=== PATIENT | male | born 1950 | race Asian ===

== ENCOUNTER 2017-01-02 06:40 | Day surgery (SDC) | payer OTHER ==
[~2017-01-02] VITALS: Ht 167.6 cm; Wt 106.2 kg
[~2017-01-02 06:40] MED LIST: AMLO-147 PO; ATEN50TA PO; CHOL100062 PO; DOXA8TAB65 PO; FINA5TAB4 PO; FURO40TA4 PO; GABA-526 PO; LOSA50TA6 PO; PIOG30TA26 PO; POTA20TA96 PO; ZOC10 PO
[2017-01-02 08:10] VITALS: Ht 167.6 cm; Wt 106.2 kg
[2017-01-02 08:18] LABS: ADD SCAN DIFF NO
[2017-01-02 08:22] LABS: EOSINOPHILS # 0.2 10^3/ul (0.0-0.5); EOSINOPHILS % 4.4 % (0.0-7.0); HEMATOCRIT 38.5 % (42.0-52.0); HEMOGLOBIN 12.6 g/dl (14.0-18.0); LYMPHOCYTES # 0.8 10^3/ul (0.8-2.9); MEAN CORPUSCULAR HEMOGLOBIN 30.7 pg (29.0-33.0); MEAN CORPUSCULAR HGB CONC 32.7 g/dl (32.0-37.0); MEAN CORPUSCULAR VOLUME 93.9 fl (82.0-101.0); MEAN PLATELET VOLUME 10.3 fl (7.4-10.4); MONOCYTE # 0.4 10^3/ul (0.3-0.9); MONOCYTES % 9.2 % (0.0-11.0); NEUTROPHIL # 2.5 10^3/ul (1.6-7.5); NEUTROPHILS % 65.1 % (39.0-77.0); PLATELET COUNT 154 10^3/UL (140-415); RED CELL DISTRIBUTION WIDTH 13.8 % (11.5-14.5); WHITE BLOOD COUNT 3.9 10^3/ul (4.8-10.8)
[2017-01-02] MEDS ORDERED: PIOG45TA15 PO (08:22)
[2017-01-02] MEDS ORDERED: SIMV40TA7 PO (08:22)
[2017-01-02] MEDS ORDERED: LAS20 PO (08:22)
[2017-01-02] MEDS ORDERED: GLIP-95 PO (08:22)
[2017-01-02] MEDS ORDERED: POTA20TA96 PO (08:22)
[2017-01-02] MEDS ORDERED: METO75TA PO (08:22)
[2017-01-02] MEDS ORDERED: LOSA100T7 PO (08:22)
[2017-01-02 08:30] LABS: POTASSIUM 3.6 mmol/L (3.5-5.1)
[2017-01-02 08:31] LABS: INR 0.94; PROTIME 12.6 Sec (12.2-14.2)
[2017-01-02 08:32] LABS: BILIRUBIN,INDIRECT 0.7 mg/dl (0-1.1); BILIRUBIN,TOTAL 0.7 mg/dl (0.2-1.3); CREATININE 0.97 mg/dl (0.61-1.24); PARTIAL THROMBOPLASTIN TIME 33.9 Sec (25.0-35.0)
[2017-01-02 08:33] LABS: ALBUMIN/GLOBULIN RATIO 1.42; CALCIUM 8.8 mg/dl (8.4-10.2); TOTAL PROTEIN 6.8 g/dl (6.1-8.1)
[2017-01-02 08:35] VITALS: BP 183/81; PULSE 71; RESP 19
[2017-01-02] MEDS ORDERED: PROPOFOL 20 ML ONE (08:38)
[2017-01-02 09:29] VITALS: BP 166/85; RESP 20
--- NOTE | 2017-01-02 13:53 | GILP ---
DATE OF PROCEDURE: NAME OF PROCEDURE: Colonoscopy. PREOPERATIVE DIAGNOSIS: The patient has history of rectal bleeding. He has history of colon cancer resection, rule out recurrence of colon cancer, rule out hemorrhoids. POSTOPERATIVE DIAGNOSES: Moderate degree of external hemorrhoids, minimal degree of internal hemorr hoids, anastomosis noted at 20 cm from the anus with no evidence of any neoplasm in the entire colon , terminal ileum appeared normal. DESCRIPTION OF PROCEDURE: After the informed written consent was obtained, the patient was asked to lie on the left lateral side. Intravenous anesthesia was given by anesthesiologist, ____. Whe n the patient became somnolent, the Olympus video colonoscope was introduced into the rectum. The s cope was advanced all the way to the cecum and the terminal ileum. The terminal ileum appeared norm al. Cecum appeared normal. No carcinoma, no polyps noted. At about 20 cm from the anus, there is evidence of anastomosis noted, but no neoplasm, no tumor, no nodularity, no ulcer noted. Retroflexi on was performed. Minimal internal hemorrhoids were noted. On the way out, a moderate degree of ex ternal hemorrhoids were noted, and the procedure was terminated. PLAN: Recommend Anusol-HC suppositories, 1 into the rectum twice a day for 10 days if the patient w ere to have bleeding. Dictated By: JOANNA HUERTA/ESTELA Conf#: [id number] DID#: [id number] CC: ;*EndCC*
== END 2017-01-02 09:41 | disposition home or self-care (01) ==
LOC: GIL 06:40
PROVIDERS: ATTEND Internal Medicine Gastroenterology
DX: K64.4 Residual hemorrhoidal skin tags (principal); K64.8 Other hemorrhoids; I10 Essential (primary) hypertension; E11.9 Type 2 diabetes mellitus without complications; E78.5 Hyperlipidemia, unspecified
CPT/HCPCS: 45378; 80053; 83690; 85025; 85610; 85730; 93005; Z7610